=== PATIENT | female | born 1995 | race Caucasian/White ===

== ENCOUNTER 2017-10-03 14:58 | Inpatient (IN) | payer BC, OTHER ==
[~2017-10-03] VITALS: Ht 170.2 cm; Wt 56.7 kg
[2017-10-03] VITALS: BP 100/51
[~2017-10-03 14:58] MED LIST: CLINDAMYCIN HCL 300 MG CAPSULE PO SCH
[2017-10-03] MEDS ORDERED: FERR325T27 PO (15:52)
[2017-10-03] MEDS ORDERED: LEVE500T20 PO (15:52)
[2017-10-03] MEDS ORDERED: VALA500T34 PO (15:52)
[2017-10-03] MEDS ORDERED: [UNRECOGNIZED DRUG - CODE] PO (15:52)
[2017-10-03] MEDS ORDERED: QUET50TA PO (15:52)
[2017-10-03] MEDS ORDERED: ACET-73 PO (15:52)
[2017-10-03] MEDS ORDERED: ESCI20TA PO (15:52)
[2017-10-03] MEDS ORDERED: QUET25TA PO (15:52)
[2017-10-03] MEDS ORDERED: ARIP10TA9 PO (15:52)
[2017-10-03] MEDS ORDERED: CIPR500T5 PO (15:52)
[2017-10-03] MEDS ORDERED: CYAN100096 PO (15:52)
[2017-10-03] MEDS ORDERED: CLIN300C11 PO (15:52)
[2017-10-03] MEDS ORDERED: [UNRECOGNIZED DRUG - REMARK] TOP (15:59)
[2017-10-03] MEDS ORDERED: BUPRENORPHINE HCL 2 MG TAB.SUBL SL PRN (16:30)
[2017-10-03] MEDS ORDERED: MAGNESIUM HYDROXIDE 30 ML LIQUID UDC PO PRN (16:30)
[2017-10-03] MEDS ORDERED: DICYCLOMINE HCL 20 MG TABLET PO PRN (16:30)
[2017-10-03] MEDS ORDERED: ONDANSETRON ODT 4 MG TAB.RAPDIS SL PRN (16:30)
[2017-10-03] MEDS ORDERED: DIAZEPAM 10 MG TABLET PO PRN ×2 (16:30)
[2017-10-03] MEDS ORDERED: IBUPROFEN 600 MG TABLET PO PRN (16:30)
[2017-10-03] MEDS ORDERED: diphenhydrAMINE 50 MG CAPSULE PO PRN (16:30)
[2017-10-03] MEDS ORDERED: MIRALAX 17 GM POWD.PACK PO PRN (16:30)
[2017-10-03] MEDS ORDERED: ACETAMINOPHEN 325 MG TABLET PO PRN (16:30)
[2017-10-03] MEDS ORDERED: LOPERAMIDE HCL 2 MG CAPSULE PO PRN ×2 (16:30)
[2017-10-03] MEDS ORDERED: ONDANSETRON 4 MG/2 ML VIAL IM PRN (16:30)
[2017-10-03] MEDS ORDERED: CLONIDINE HCL 0.1 MG TABLET PO PRN (16:30)
[2017-10-03] MEDS ORDERED: MAG HYDROX/AL HYDROX/SIMETH 30 ML LIQUID UDC PO PRN (16:30)
[2017-10-03] MEDS ORDERED: DIAZEPAM 5 MG TABLET PO PRN (16:30)
[2017-10-03 19:44] LABS: *URINE HCG, QUAL NEGATIVE (NEGATIVE)
[2017-10-03 20:00] VITALS: BP 111/60
[2017-10-03 20:03] LABS: *AMPHETAMINE, URINE POSITIVE (NEGATIVE); *BARBITURATE, URINE NEGATIVE (NEGATIVE); *CANNABINOID, URINE POSITIVE (NEGATIVE); *COCCAINE, URINE POSITIVE (NEGATIVE); *OPIATE, URINE POSITIVE (NEGATIVE); *PHENCYCLIDINE SCREEN,URINE NEGATIVE (NEGATIVE)
[2017-10-03] MEDS: METHOCARBAMOL 750 MG TABLET PO PRN (20:12)
[2017-10-03 21:16] LABS: BASOPHILS % (AUTO) 0.9 % (0.0-2.0); EOSINOPHILS # (AUTO) 0.1 K/uL (0.0-0.7); EOSINOPHILS % (AUTO) 1.9 % (0.0-7.0); HEMATOCRIT 40.4 % (31.2-41.9); LYMPHOCYTES # (AUTO) 1.1 K/uL (20.0-40.0); MEAN CORPUSCULAR HEMOGLOBIN 31.1 uug (24.7-32.8); MEAN CORPUSCULAR HGB CONC 35 g/dL (32.3-35.6); MEAN CORPUSCULAR VOLUME 89.9 fL (75.5-95.3); MONOCYTES # (AUTO) 0.6 K/uL (2.0-10.0); MONOCYTES % (AUTO) 12.2 % (0-11); NEUTROPHILS # (AUTO) 2.8 K/uL (1.8-8.9); PLATELET COUNT (AUTO) 262 K/uL (179-408); RED BLOOD CELL COUNT(AUTO) 4.49 MIL/uL (3.63-4.92); WHITE BLOOD COUNT (AUTO) 4.6 K/uL (3.8-11.8)
[2017-10-03] MEDS ORDERED: CLINDAMYCIN HCL 300 MG CAPSULE PO ONE (21:30)
[2017-10-03] MEDS ORDERED: LEVETIRACETAM 500 MG TABLET PO ONE (21:30)
[2017-10-03 21:35] LABS: ALANINE AMINOTRANSFERASE 22 U/L (14-59); ALKALINE PHOSPHATASE 61 U/L (50-136); AMYLASE 58 U/L (25-115); ASPARTATE AMINOTRANSFERASE 19 U/L (15-37); BILIRUBIN,TOTAL 0.5 mg/dL (0.2-1.0); CARBON DIOXIDE 31 mmol/L (21-32); CHLORIDE 99 mmol/L (98-107); CREATININE 0.9 mg/dL (0.6-1.3); GLUCOSE 87 mg/dL (74-106); LIPASE 226 U/L (73-393); MAGNESIUM 1.8 mg/dL (1.8-2.4); POTASSIUM 3.2 mmol/L (3.5-5.1); TOTAL PROTEIN, SERUM 7.2 g/dL (6.4-8.2); UREA NITROGEN, BLOOD 8 mg/dL (7-18)
[2017-10-03] MEDS ORDERED: CIPROFLOXACIN HCL 250 MG TABLET ONE (21:55)
[2017-10-03] MEDS ORDERED: CIPROFLOXACIN HCL 250 MG TABLET PO ONE (22:00)
[2017-10-03 22:06] LABS: ETHANOL < 3 MG/DL (0-0)
[2017-10-03] MEDS ORDERED: POTASSIUM CHLORIDE 20 MEQ TAB.PRT.SR PO ONE (23:00)
[2017-10-04] VITALS: BP 100/51
[2017-10-04 04:00] VITALS: BP 90/50
[2017-10-04 08:00] VITALS: BP 110/66
[2017-10-04] MEDS ORDERED: 5 DAY TAPER BUPRENORPHINE -SERENITY PROTOCOL SL PRN (09:00)
[2017-10-04] MEDS ORDERED: LEVETIRACETAM 500 MG TABLET PO SCH (09:00)
[2017-10-04] MEDS ORDERED: 5 DAY TAPER VALIUM-SERENITY PROTOCOL PO PRN (09:00)
[2017-10-04] MEDS ORDERED: TUBERCULIN,PURIF.PROT.DERIV. 5 TU/0.1 ML TEST ID ONE (09:00)
[2017-10-04] MEDS: MULTIVITAMINS,THERAPEUTIC TABLET PO SCH (10:05)
[2017-10-04] MEDS: CYANOCOBALAMIN 1,000 MCG TABLET PO SCH (10:05)
[2017-10-04] MEDS: BUPRENORPHINE HCL 2 MG TAB.SUBL SL SCH ×4 (10:06→20:35)
[2017-10-04] MEDS: DIAZEPAM 10 MG TABLET PO SCH ×4 (10:06→20:35)
[2017-10-04] MEDS: FERROUS SULFATE 325 MG TABEC PO SCH (10:06)
[2017-10-04] MEDS: CIPROFLOXACIN 500 MG PO SCH ×2 (10:39→20:09)
[2017-10-04 12:00] VITALS: BP_SYST 85; BP_SYST 99; BP_DIAS 44; BP_DIAS 62
[2017-10-04 16:00] VITALS: BP 83/40
[2017-10-04 20:00] VITALS: BP 104/60
[2017-10-04] MEDS: CLINDAMYCIN HCL 300 MG CAPSULE PO SCH (20:09)
[2017-10-05] VITALS: BP 91/39
[2017-10-05 08:00] VITALS: BP 93/47
[2017-10-05 08:10] LABS: HEPATITIS B SURFACE AG Negative (Negative)
[2017-10-05] MEDS: CLINDAMYCIN HCL 300 MG CAPSULE PO SCH ×2 (09:00→17:35)
[2017-10-05] MEDS: DIAZEPAM 10 MG TABLET PO SCH ×3 (09:00→22:05)
[2017-10-05] MEDS: ARIPIPRAZOLE 10 MG TABLET PO SCH (10:07)
[2017-10-05] MEDS: CYANOCOBALAMIN 1,000 MCG TABLET PO SCH (10:07)
[2017-10-05] MEDS: ESCITALOPRAM OXALATE 10 MG TABLET PO SCH (10:08)
[2017-10-05] MEDS: MULTIVITAMINS,THERAPEUTIC TABLET PO SCH (10:08)
[2017-10-05] MEDS: FERROUS SULFATE 325 MG TABEC PO SCH (10:08)
[2017-10-05] MEDS: BUPRENORPHINE HCL 2 MG TAB.SUBL SL SCH ×3 (10:09→22:05)
[2017-10-05] MEDS: DIAZEPAM 5 MG TABLET PO SCH (10:09)
[2017-10-05] MEDS: CIPROFLOXACIN 500 MG PO SCH ×2 (10:10→20:59)
[2017-10-05 12:00] VITALS: BP 102/54
[2017-10-05 16:00] VITALS: BP 95/60
[2017-10-05 20:00] VITALS: BP 107/59
[2017-10-05 22:05] VITALS: BP 107/64
[2017-10-06] VITALS: BP 96/59
[2017-10-06 04:00] VITALS: BP 97/54
[2017-10-06 08:00] VITALS: BP 97/50
[2017-10-06] MEDS ORDERED: BUPRENORPHINE HCL 2 MG TAB.SUBL SL SCH (09:00)
[2017-10-06] MEDS: CIPROFLOXACIN 500 MG PO SCH ×2 (09:35→21:01)
[2017-10-06] MEDS: MULTIVITAMINS,THERAPEUTIC TABLET PO SCH (09:36)
[2017-10-06] MEDS: FERROUS SULFATE 325 MG TABEC PO SCH (09:36)
[2017-10-06] MEDS: ESCITALOPRAM OXALATE 10 MG TABLET PO SCH (09:36)
[2017-10-06] MEDS: CLINDAMYCIN HCL 300 MG CAPSULE PO SCH ×2 (09:36→17:15)
[2017-10-06] MEDS: CYANOCOBALAMIN 1,000 MCG TABLET PO SCH (09:37)
[2017-10-06] MEDS: ARIPIPRAZOLE 10 MG TABLET PO SCH (09:37)
[2017-10-06 12:00] VITALS: BP 102/60
[2017-10-06] MEDS: DIAZEPAM 5 MG TABLET PO SCH ×3 (12:22→21:01)
[2017-10-06 16:00] VITALS: BP 103/60
[2017-10-06] MEDS: BUPRENORPHINE HCL 2 MG TAB.SUBL SL SCH ×2 (17:16→21:01)
[2017-10-06 20:10] VITALS: BP 92/50
[2017-10-07 08:10] VITALS: BP 90/64
[2017-10-07] MEDS: CYANOCOBALAMIN 1,000 MCG TABLET PO SCH (08:45)
[2017-10-07] MEDS: MULTIVITAMINS,THERAPEUTIC TABLET PO SCH (08:45)
[2017-10-07] MEDS: ARIPIPRAZOLE 10 MG TABLET PO SCH (08:45)
[2017-10-07] MEDS: FERROUS SULFATE 325 MG TABEC PO SCH (08:45)
[2017-10-07] MEDS: BUPRENORPHINE HCL 2 MG TAB.SUBL SL SCH ×3 (08:45→21:09)
[2017-10-07] MEDS: ESCITALOPRAM OXALATE 10 MG TABLET PO SCH (08:45)
[2017-10-07] MEDS: DIAZEPAM 5 MG TABLET PO SCH ×3 (08:46→21:08)
[2017-10-07] MEDS: CIPROFLOXACIN 500 MG PO SCH ×2 (08:46→21:02)
[2017-10-07] MEDS: CLINDAMYCIN HCL 300 MG CAPSULE PO SCH ×2 (08:46→16:41)
[2017-10-07 14:00] VITALS: BP 100/54
[2017-10-07 16:22] LABS: BILIRUBIN,TOTAL 0.4 mg/dL (0.2-1.0); CREATININE 0.9 mg/dL (0.6-1.3); POTASSIUM 3.9 mmol/L (3.5-5.1); TOTAL PROTEIN, SERUM 6.7 g/dL (6.4-8.2)
[2017-10-07] MEDS: ENSURE WITH FIBER 237 ML LIQUID (CHOCOLATE) PO SCH (16:42)
[2017-10-07 17:41] VITALS: BP 105/68
[2017-10-07 20:00] VITALS: BP 104/66
[2017-10-07] MEDS: METHOCARBAMOL 750 MG TABLET PO PRN (21:02)
[2017-10-07] MEDS: QUETIAPINE FUMARATE 25 MG TABLET PO PRN (21:53)
[2017-10-08] VITALS: BP 98/66
[2017-10-08 04:00] VITALS: BP 92/56
[2017-10-08 08:22] VITALS: BP 106/64
[2017-10-08] MEDS: DIAZEPAM 5 MG TABLET PO SCH ×2 (08:50→21:33)
[2017-10-08] MEDS: ENSURE WITH FIBER 237 ML LIQUID (CHOCOLATE) PO SCH ×3 (08:50→16:50)
[2017-10-08] MEDS: CLINDAMYCIN HCL 300 MG CAPSULE PO SCH ×2 (08:51→16:53)
[2017-10-08] MEDS: CIPROFLOXACIN 500 MG PO SCH ×2 (08:51→21:33)
[2017-10-08] MEDS: ARIPIPRAZOLE 10 MG TABLET PO SCH (08:51)
[2017-10-08] MEDS: CYANOCOBALAMIN 1,000 MCG TABLET PO SCH (08:51)
[2017-10-08] MEDS: FERROUS SULFATE 325 MG TABEC PO SCH (08:52)
[2017-10-08] MEDS ORDERED: BUPRENORPHINE HCL 2 MG TAB.SUBL SL SCH (09:00)
[2017-10-08] MEDS: MULTIVITAMINS,THERAPEUTIC TABLET PO SCH (09:04)
[2017-10-08] MEDS: ESCITALOPRAM OXALATE 10 MG TABLET PO SCH (09:04)
[2017-10-08 12:30] VITALS: BP 97/62
[2017-10-08 16:58] VITALS: BP 99/59
[2017-10-08 20:20] VITALS: BP 105/66
[2017-10-08] MEDS: QUETIAPINE FUMARATE 25 MG TABLET PO PRN (21:44)
[2017-10-09 08:24] VITALS: BP 95/65
[2017-10-09] MEDS: ESCITALOPRAM OXALATE 10 MG TABLET PO SCH (08:57)
[2017-10-09] MEDS: CYANOCOBALAMIN 1,000 MCG TABLET PO SCH (08:57)
[2017-10-09] MEDS: ENSURE WITH FIBER 237 ML LIQUID (CHOCOLATE) PO SCH ×3 (08:57→16:38)
[2017-10-09] MEDS: CLINDAMYCIN HCL 300 MG CAPSULE PO SCH ×2 (08:58→16:38)
[2017-10-09] MEDS: MULTIVITAMINS,THERAPEUTIC TABLET PO SCH (08:58)
[2017-10-09] MEDS: ARIPIPRAZOLE 10 MG TABLET PO SCH (08:58)
[2017-10-09] MEDS: FERROUS SULFATE 325 MG TABEC PO SCH (08:58)
[2017-10-09] MEDS: CIPROFLOXACIN 500 MG PO SCH ×2 (09:00→20:37)
[2017-10-09 13:22] VITALS: BP 102/65
[2017-10-09] MEDS ORDERED: VALA500T34 PO (14:18)
[2017-10-09] MEDS ORDERED: [UNRECOGNIZED DRUG - CODE] PO (14:18)
[2017-10-09 17:12] VITALS: BP 106/54
[2017-10-09 20:00] VITALS: BP 95/50
[2017-10-09] MEDS: QUETIAPINE FUMARATE 25 MG TABLET PO PRN (20:37)
[2017-10-10] VITALS: BP 93/43
[2017-10-10 04:00] VITALS: BP 94/47
[2017-10-10 08:00] VITALS: BP 96/66
[2017-10-10] MEDS: FERROUS SULFATE 325 MG TABEC PO SCH (08:38)
[2017-10-10] MEDS: ARIPIPRAZOLE 10 MG TABLET PO SCH (08:38)
[2017-10-10] MEDS: CIPROFLOXACIN 500 MG PO SCH (08:38)
[2017-10-10] MEDS: MULTIVITAMINS,THERAPEUTIC TABLET PO SCH (08:38)
[2017-10-10] MEDS: ESCITALOPRAM OXALATE 10 MG TABLET PO SCH (08:39)
[2017-10-10] MEDS: CYANOCOBALAMIN 1,000 MCG TABLET PO SCH (08:39)
[2017-10-10] MEDS: ENSURE WITH FIBER 237 ML LIQUID (CHOCOLATE) PO SCH (08:41)
== END 2017-10-10 09:28 | DRG 895 ==
LOC: SRC 14:58 → EDBD 14:58
PROVIDERS: ADMIT Family Medicine Addiction Medicine; ATTEND Family Medicine Addiction Medicine
PROC: HZ2ZZZZ Detoxification Services for Substance Abuse Treatment (ICD-10-PCS; principal; 2017-10-03)
PROC: HZ31ZZZ Individual Counseling for Substance Abuse Treatment, Behavioral (ICD-10-PCS; 2017-10-05)
DX: F11.23 Opioid dependence with withdrawal (principal); L03.114 Cellulitis of left upper limb; F33.2 Major depressive disorder, recurrent severe without psychotic features; F14.20 Cocaine dependence, uncomplicated; F50.2 Bulimia nervosa; L02.414 Cutaneous abscess of left upper limb; E87.6 Hypokalemia; Z59.0 Homelessness; M79.7 Fibromyalgia; F17.210 Nicotine dependence, cigarettes, uncomplicated; F12.288 Cannabis dependence with other cannabis-induced disorder; Z86.59 Personal history of other mental and behavioral disorders; Z79.899 Other long term (current) drug therapy; F15.23 Other stimulant dependence with withdrawal
CPT/HCPCS: 36415; 80307; 80324; 80346; 80349; 80353; 80361; 83690; 83735; 84443; 84481; 84703; 85025; 86580; 86592; 86705; 86803; 87340; 87806; 93005; A4663; G0480; Q0162

== ENCOUNTER 2018-04-08 14:27 | Emergency (ER) | payer BC, OTHER ==
[~2018-04-08] VITALS: Ht 170.2 cm; Wt 61.2 kg
[~2018-04-08 14:27] MED LIST changes: +ARIP10TA9 PO; -CLINDAMYCIN HCL 300 MG CAPSULE PO SCH; +CYAN100096 PO; +ESCI20TA PO; +FERR325T27 PO; +LEVE500T20 PO; +QUET50TA PO; +VALA500T34 PO; +[UNRECOGNIZED DRUG - CODE] PO
--- NOTE | 2018-04-08 14:43 | NUR ---
PATIENT WAS SEEN BY MD AND ME AT BEDSIDE.
--- NOTE | 2018-04-08 14:51 | NUR ---
DC, RX AND FOLLOW UP INSTRUCTIONS GIVEN AND EXPLAINED TO PATIENT WHO STATES SHE UNDERSTANDS ALL INSTRUCTIONS
== END 2018-04-08 14:52 | disposition home or self-care (01) ==
LOC: ER 14:28
DX: B00.9 Herpesviral infection, unspecified (principal); Z88.0 Allergy status to penicillin; Z79.899 Other long term (current) drug therapy
CPT/HCPCS: A4663